=== PATIENT | female | born 1935 | race Caucasian/White ===

== ENCOUNTER 2017-03-26 06:36 | Day surgery (SDC) | payer MEDICARE, BC ==
[2017-03-26] MEDS ORDERED: Lidocaine 1% with EPINEPHrine 1:100,000 50 ML MDV ONE (06:43)
[2017-03-26] MEDS ORDERED: Bupivacaine 0.5% 50 ML MDV ONE (06:43)
[2017-03-26] MEDS ORDERED: Sodium Chloride 0.9% 1,000 ML IV SCH (07:00)
[2017-03-26] MEDS ORDERED: ceFAZolin 2 GM in Premix Bag 1 BAG IV ONE ×2 (07:00→07:30)
[2017-03-26] MEDS ORDERED: Propofol 200 MG/20 ML SDV ONE (07:38)
[2017-03-26] MEDS ORDERED: fentaNYL 100 MCG/2 ML SDV ONE (07:38)
[2017-03-26] MEDS ORDERED: Lidocaine 2% 5 ML SDV ONE (08:37)
[2017-03-26 10:16] VITALS: BP 138/70
--- NOTE | 2017-03-26 12:39 | OR ---
DATE OF PROCEDURE: 03/26/2017 PROCEDURE: Excision of squamous cell carcinoma lesions, left leg, x2 (excision, 10.3 cm x 3.1 cm). COMPLICATIONS: None. [employer]: None. ANESTHESIA: MAC/local. INDICATIONS: Pleasant 82-year-old female with 2 squamous cell carcinoma lesions in proximity to each other, however, approximately 5 mm to 1 cm apart. RISKS: Risks, benefits, alternatives, limitations including, but not limited to infection, bleeding, and chronic wound formation and requirement for reoperation were explained to the patient, who wished to proceed. PROCEDURE IN DETAIL: The patient was placed in supine position. The area was marked out in the aforementioned dimensions. Due to the 2 lesions being close proximity; however, at distance apart, a 3:1 ratio would be respected in a horizontal fashion. This was then marked out, anesthetized with lidocaine, and excised in elliptical fashion. This was carried down to full thickness. This was in a fat layer, however, the anatomical structures such as the nerve and the saphenous vein were preserved. Prior to excision, a single stitch was placed superiorly and double stitch was placed laterally. Using simple flap techniques, the skin was mobilized. The wound was closed with 3-0 Vicryl in subcutaneous fashion. Yesica, a 2-0 Prolene and a running stitch and 2-0 nylon horizontal mattress sutures. Lidocaine gel was also applied. Dressings were applied. The patient tolerated the procedure well. Federico Johnson MD /[id number]
== END 2017-03-26 10:41 | disposition home or self-care (01) ==
LOC: JP.SDS 06:36
PROVIDERS: ATTEND Surgery
DX: L57.0 Actinic keratosis (principal); L81.4 Other melanin hyperpigmentation; I10 Essential (primary) hypertension
CPT/HCPCS: 11406; 12034; J0690; J2704; J3010; J7040; 88305

== ENCOUNTER 2022-06-09 07:29 | Day surgery (SDC) | payer MEDICARE, BC ==
[2022-06-09] MEDS ORDERED: fentaNYL 50 MCG/ML SDV ONE (07:39)
[2022-06-09] MEDS ORDERED: Propofol 200 MG/20 ML SDV ONE (07:39)
[2022-06-09] MEDS ORDERED: Lactated Ringers 1,000 ML IV SCH (08:00)
[2022-06-09 09:54] VITALS: BP 143/44; PULSE 52
== END 2022-06-09 10:20 | disposition home or self-care (01) ==
LOC: JP.SDS 07:29
PROVIDERS: ATTEND Family Medicine
DX: K92.1 Melena (principal); D64.9 Anemia, unspecified; K64.8 Other hemorrhoids; R63.4 Abnormal weight loss; I48.92 Unspecified atrial flutter; I10 Essential (primary) hypertension; Z79.01 Long term (current) use of anticoagulants
CPT/HCPCS: 36415; 45378; 85610; J2704; J3010; J7120

== ENCOUNTER 2025-03-06 02:27 | Emergency (ER) | payer MEDICARE, BC ==
[2025-03-06 03:14] LABS: BASOPHILS PERCENT AUTO 0.3 % (0.1-1.3); EOSINOPHILS PERCENT AUTO 0.7 % (0.0-5.4); IMMATURE GRAN PERCENT AUTO 0.0 % (0.0-0.7); LYMPHOCYTES ABSOLUTE AUTO 0.64 K/uL (0.8-3.3); LYMPHOCYTES PERCENT AUTO 21.1 % (11.4-47.7); MONOCYTES ABSOLUTE AUTO 0.38 K/uL (0.20-0.90); MONOCYTES PERCENT AUTO 12.5 % (3.3-12.6); NEUTROPHILS ABSOLUTE AUTO 1.99 K/uL (1.0-7.6); NEUTROPHILS PERCENT AUTO 65.4 % (40.0-78.1); PLATELET COUNT,PLT 129 K/uL (130-375); RED BLOOD CELL COUNT 3.13 M/uL (3.77-5.24); WHITE BLOOD CELL COUNT,WBC 3.0 K/uL (3.2-11.0)
[2025-03-06 03:15] LABS: BASOPHILS ABSOLUTE AUTO 0.01 K/uL (0.00-0.10); EOSINOPHILS ABSOLUTE AUTO 0.02 K/uL (0.00-0.40); IMMATURE GRAN ABSOLUTE AUTO 0.00 K/uL (0.00-0.23)
[2025-03-06 03:36] VITALS: BP 148/60; PULSE 66
[2025-03-06 03:41] LABS: LACTIC ACID 0.9 mmol/L (0.4-2.0)
[2025-03-06 03:42] LABS: A/G RATIO 0.9 (1.2-2.2); ALANINE AMINOTRANSFERASE,ALT 30 U/L (12-78); ASPARTATE AMNIOTRANSFERASE,AST 35 U/L (15-37); BILIRUBIN TOTAL 0.6 mg/dL (0.2-1.0); BLOOD UREA NITROGEN,BUN 38 mg/dL (7-18); CARBON DIOXIDE,CO2 26 mmol/L (21-32); CHLORIDE,CL 98 mmol/L (100-108); CREATININE 1.7 mg/dL (0.6-1.0); EST CRCL DRUG DOSING (CG) 18.47 mL/min; ESTIMATED GFR 28 mL/min (>60); GLUCOSE RANDOM 113 mg/dL (74-106); POTASSIUM,K 3.2 mmol/L (3.6-5.2); PRO B-TYPE NATRIUR PEPT,BNPPRO 3742 pg/mL (5-450); PROTEIN TOTAL,TP 6.6 g/dL (6.4-8.2); SODIUM,NA 135 mmol/L (140-148); TROPONIN I HIGH SENSITIVITY 23.6 pg/mL (<=60.3)
== END 2025-03-06 04:51 | disposition home or self-care (01) ==
LOC: JP.ED 02:27
DX: J18.9 Pneumonia, unspecified organism (principal); I10 Essential (primary) hypertension; I48.91 Unspecified atrial fibrillation; E78.00 Pure hypercholesterolemia, unspecified; Z79.899 Other long term (current) drug therapy; Z79.01 Long term (current) use of anticoagulants
CPT/HCPCS: 36415; 71046; 71046-26; 80053; 83605; 83735; 83880; 84484; 85025; 85379; 86140; 93005; 99285